=== PATIENT | male | born 1995 | race Caucasian/White ===

== ENCOUNTER → 2017-02-18 | Outpatient (CLI) | payer BC, OTHER ==
--- NOTE | 2017-02-18 17:32 | US ---
EXAMINATION TYPE: US gallbladder DATE OF EXAM: 02/18/2017 COMPARISON: CT 2008 CLINICAL HISTORY: R upper quadrant pain R10.11 Abn test result R94.5. EXAM MEASUREMENTS: Liver Length: 13.9 cm Gallbladder Wall: 0.2 cm CBD: 0.3 cm Right Kidney: 9.5 x 3.1 x 4.6 cm Pancreas: Obscured by bowel gas, visualized portions wnl Liver: wnl Gallbladder: wnl Evidence for sonographic Salcedo's sign: No CBD: wnl Right Kidney: No hydronephrosis or masses seen IMPRESSION: Negative right upper quadrant abdominal sonogram. No gallstones or dilated ducts.
== END | disposition home or self-care (01) ==
LOC: RADUSMAIN 16:56
PROVIDERS: ATTEND Family Medicine
DX: R10.11 Right upper quadrant pain (principal)
CPT/HCPCS: 76705

== ENCOUNTER 2018-04-10 21:07 | Emergency (ER) | payer BC, OTHER ==
[2018-04-10 21:30] VITALS: BP 140/81; PULSE 73; RESP 18; TEMP 99.1
--- NOTE | 2018-04-10 22:01 | XR ---
Left hand 2 views. History laceration. Comparison none. FINDINGS: There is a small laceration deformity of the tuft of the distal phalanx of the middle finger left ahndley d. I see no definite foreign body. There is no dislocation. IMPRESSION: Small laceration deformity of the distal phalanx of the middle finger left hand.
--- NOTE | 2018-04-10 22:03 | ED ---
Wound/Laceration HPI - General Source: patient Mode of arrival: ambulatory Limitations: no limitations <Ce Purvis - Last Filed: 04/11/18 00:46> <Evelia Landin P - Last Filed: 04/12/18 03:48> - General Chief Complaint: Wound/Laceration Stated Complaint: Finger laceration Time Seen by Provider: 04/10/18 21:35 - History of Present Illness Initial Comments: 22-year-old male denies past medical history presenting today for chief complaint of left middle finger laceration. Patient states he was using a belt caught her when he actually slipped cutting his left middle finger. Patient states involved a nail, small laceration. He states wound edges approximated well. He denies any subungual hematoma. Patient thought he might need evaluation he was not sure if they would remove the nail. Patient states he did not think there would be sutures needed. Patient states tetanus is up-to- date within the last 5 years. Patient denies any numbness tingling loss sensation decreased range of motion or muscle weakness of the digit. Review of systems negative upon arrival patient appears well, P=patient denies any recent fever, chills, shortness of breath, chest pain, back pain, abdominal pain, nausea or vomiting, numbness or tingling, dysuria or hematuria, constipation or diarrhea, headaches or visual changes, or any other complaints. (Ce Purvis) - Related Data Home Medications Medication Instructions Recorded Confirmed Famotidine [Pepcid] 20 mg PO BID 02/02/16 02/02/16 Previous Rx's Medication Instructions Recorded ALPRAZolam [Xanax] 0.25 mg PO BID PRN #8 tab 02/03/16 Allergies Allergy/AdvReac Type Severity Reaction Status Date / Time No Known Allergies Allergy Verified 04/10/18 21:30 Review of Systems ROS Other: All systems not noted in ROS Statement are negative. <Ce Purvis - Last Filed: 04/11/18 00:46> ROS Other: All systems not noted in ROS Statement are negative. <Evelia Landin P - Last Filed: 04/12/18 03:48> ROS Statement: Those systems with pertinent positive or pertinent negative responses have been documented in the HPI. Past Medical History Past Medical History: No Reported History History of Any Multi-Drug Resistant Organisms: None Reported Past Surgical History: Appendectomy Past Psychological History: Anxiety Smoking Status: Never smoker Past Alcohol Use History: None Reported Past Drug Use History: None Reported <Ce Purvis - Last Filed: 04/11/18 00:46> General Exam Limitations: no limitations <Ce Purvis - Last Filed: 04/11/18 00:46> <Evelia Landin - Last Filed: 04/12/18 03:48> - General Exam Comments Initial Comments: General: The patient is awake and alert, in no distress, and does not appear acutely ill. Eye: Pupils are equal, round and reactive to light, extra-ocular movements are intact. No nystagmus. There is normal conjunctiva bilaterally. No signs of icterus. Ears, nose, mouth and throat: There are moist mucous membranes and no oral lesions. Neck: The neck is supple, there is no tenderness or JVD. Cardiovascular: There is a regular rate and rhythm. No murmur, rub or gallop is appreciated. Respiratory: Lungs are clear to auscultation, respirations are non-labored, breath sounds are equal. No wheezes, stridor, rales, or rhonchi. Musculoskeletal: upon inspection of the nails there is a laceration about 1 cm superficial with past sensory involvement through the left middle finger nailbed. There is no subungual hematoma. Wound edges approximate well. No deep laceration. Normal ROM, no tendernessat the MTP, PIP and DIP joints of all 5 digits of the hands equal comparison bilaterally with 5 out of 5 strength.. Sensation intact. radial pulses equal bilaterally 2+. Capillary refill less than 2 seconds Neurological: A&O x 3. CN II-XII intact, There are no obvious motor or sensory deficits. Coordination appears grossly intact. Speech is normal. Skin: Skin is warm and dry and no rashes or lesions are noted. Psychiatric: Cooperative, appropriate mood & affect, normal judgment. (Ce Purvis) Vital Signs 04/10/18 21:27 Temperature 99.1 F Pulse Rate 73 Respiratory 18 Rate Blood Pressure 140/81 O2 Sat by Pulse 99 Oximetry Medical Decision Making <Ce Purvis - Last Filed: 04/11/18 00:46> <Evelia Landin - Last Filed: 04/12/18 03:48> - Medical Decision Making well-appearing 22-year-old male with tetanus up-to-date presenting for laceration. Through the nailbed however no subungual hematoma. Does not appear deep, more superifical laceration. No exposure of underlying structure. x-ray revealed no foreign body. No bony involvement. Patient has full strength and sensation there is no evidence of tendon injury. There is no area that would indicate wound repair suture. Laceration superficial. laceration was cleansed with iodine and sterile water irrigated thoroughly. Bacitracin and bandage applied.At this time we do feel patient is stable for discharge with primary care follow-up and return for any infectious symptoms. Patient is agreeable plan discharged to questions at this time. Patient aware all return parameters. Discussed the case with attending provider Dr. Landin (Ce Purvis) I was available for consultation in the emergency department. The history and physical exam were done by the midlevel provider. I was consulted for this patient's care. I reviewed the case with the midlevel provider and based on their presentation of the patient, I agree with the assessment, medical decision making and plan of care as documented. (Evelia Landin) Disposition Is patient prescribed a controlled substance at d/c from ED?: No Time of Disposition: 22:03 <Ce Purvis - Last Filed: 04/11/18 00:46> <Evelia Landin - Last Filed: 04/12/18 03:48> Clinical Impression: Laceration of left middle finger without foreign body with damage to nail Disposition: HOME SELF-CARE Condition: Good Instructions (If sedation given, give patient instructions): Finger Laceration (ED) Additional Instructions: Please use medication as discussed. Please follow-up with family doctor in the next 2 days of symptoms have not improved. Please return to emergency room if the symptoms increase or worsen or for any other concerns. Referrals: Geraldo Raya Jr, [Primary Care Provider] - 1-2 days
== END 2018-04-10 22:17 | disposition home or self-care (01) ==
LOC: EC 21:07
DX: S61.313A Laceration without foreign body of left middle finger with damage to nail, initial encounter (principal); Z79.899 Other long term (current) drug therapy; W45.8XXA Other foreign body or object entering through skin, initial encounter
CPT/HCPCS: 99283